=== PATIENT | male | born 1985 | race Caucasian/White ===

== ENCOUNTER 2021-04-24 16:42 | Outpatient (CLI) | payer OTHER, SELFPAY ==
[2021-04-24 17:45] LABS: D Dimer 0.45 mg/L (0.19-0.50)
[2021-04-24 17:48] LABS: Alanine Aminotransferase 32 U/L (16-63); Albumin Level 3.5 g/dL (3.4-5.0); Alkaline Phosphatase 92 U/L (46-116); Anion Gap 13 mmol/L (8-16); Aspartate Amino Transferase 22 U/L (15-37); Bilirubin,Total 0.3 mg/dL (0.00-1.00); Blood Urea Nitrogen 10 mg/dL (7-18); Calcium 8.6 mg/dL (8.5-10.1); Carbon Dioxide 24 mmol/L (21-32); Chloride 101 mmol/L (98-108); Estimated Glomerular Filt Rate > 60; Glucose 98 mg/dL (70-99); Osmolality Calculated 285 mOsm/kg (285-295); Potassium 3.9 mmol/L (3.5-5.1); Sodium 138 mmol/L (136-145); Total Protein 7.3 g/dL (6.4-8.2)
[2021-04-25 09:56] LABS: Thyroid Stimulating Hormone 3.57 uIU/mL (0.36-3.74)
== END 2021-04-24 16:43 | disposition home or self-care (01) ==
LOC: CHSLAB 16:46
PROVIDERS: PCP Family Medicine; Visit Provider Family Medicine
DX: R60.0 Localized edema (principal); M79.604 Pain in right leg; R53.83 Other fatigue
CPT/HCPCS: 36415; 80053; 84443; 85380

== ENCOUNTER 2023-01-28 08:48 | Outpatient (CLI) | payer OTHER, SELFPAY ==
[2023-01-28 18:04] LABS: Hematocrit 40.3 % (42.0-52.0); Hemoglobin 11.8 g/dL (14.0-18.0); Mean Corpuscular HGB Conc 29.3 g/dl (32-36); Mean Corpuscular Hemoglobin 24.3 pg (26-34); Mean Corpuscular Volume 82.9 fl (80-100); Mean Platelet Volume 12.3 fl (7.4-10.4); Platelet Count Result 231 k/mm3 (150-375); Red Blood Count 4.86 M/mm3 (4.6-6.20); Red Cell Distribution Width 15.8 % (11.5-14.5); White Blood Count 5.9 K/mm3 (4.5-10.0)
[2023-01-28 18:54] LABS: Hemoglobin A1C 5.3 % (<5.7)
[2023-01-28 19:00] LABS: Alanine Aminotransferase 40 U/L (6-50); Albumin Level 4.5 g/dL (3.5-5.1); Alkaline Phosphatase 69 U/L (38-126); Anion Gap 7 mmol/L (8-16); Aspartate Amino Transferase 46 U/L (17-59); Bilirubin,Total 0.4 mg/dL (0.2-1.3); Blood Urea Nitrogen 7 mg/dL (9-20); Calcium 9.2 mg/dL (8.4-10.2); Carbon Dioxide 34 mmol/L (22-30); Chloride 98 mmol/L (98-107); Cholesterol 171 mg/dL (0-200); Estimated Glomerular Filt Rate > 60; Glucose 101 mg/dL (65-110); HDL Direct 41 mg/dL; Potassium 3.4 mmol/L (3.4-5.0); Sodium 139 mmol/L (137-145); Triglycerides 162 mg/dL (<150)
[2023-01-28 19:06] LABS: Hepatitis B Surface Antigen Negative (Negative)
[2023-01-28 19:12] LABS: HAV RESULT Negative (Negative); Hepatitis B Core IgM Result Negative (Negative)
[2023-01-28 19:23] LABS: LDL Cholesterol Direct 85 mg/dL
[2023-01-28 19:24] LABS: Hepatitis C Virus Antibody Negative (Negative)
[2023-02-03 09:44] LABS: Testosterone Free 9.9 pg/mL (35.0-155.0); Testosterone Total 69 ng/dL (250-1100)
== END 2023-01-28 08:49 | disposition home or self-care (01) ==
LOC: ANHBWCLAB 08:49
PROVIDERS: PCP Family Medicine; Visit Provider Family Medicine
DX: R79.89 Other specified abnormal findings of blood chemistry (principal); N52.9 Male erectile dysfunction, unspecified; F41.9 Anxiety disorder, unspecified; E66.9 Obesity, unspecified; Z20.2 Contact with and (suspected) exposure to infections with a predominantly sexual mode of transmission
CPT/HCPCS: 36415; 80053; 80061; 80074; 83036; 84402; 84403; 85027